=== PATIENT | female | born 1985 | race Two or more races ===

== ENCOUNTER 2017-04-01 10:49 | Emergency (ER) | payer MEDICAID, OTHER ==
[~2017-04-01] VITALS: Ht 154.9 cm; Wt 65.8 kg
[2017-04-01 11:41] VITALS: BP 124/83
== END 2017-04-01 12:13 | disposition home or self-care (01) ==
LOC: ER 10:49
DX: S16.1XXA Strain of muscle, fascia and tendon at neck level, initial encounter (principal); V49.49XA Driver injured in collision with other motor vehicles in traffic accident, initial encounter; Y93.89 Activity, other specified; Y92.410 Unspecified street and highway as the place of occurrence of the external cause; Y99.8 Other external cause status

== ENCOUNTER 2019-03-18 16:51 | Emergency (ER) | payer MEDICAID ==
[~2019-03-18] VITALS: Ht 152.4 cm; Wt 50.8 kg
[2019-03-18 17:03] VITALS: BP 135/76
== END 2019-03-18 20:40 | disposition left against medical advice (07) ==
LOC: ER 16:51
DX: R22.0 Localized swelling, mass and lump, head (principal); Z53.21 Procedure and treatment not carried out due to patient leaving prior to being seen by health care provider